=== PATIENT | male | born 1960 | race Caucasian/White ===

== ENCOUNTER 2019-04-08 09:32 | Emergency (ER) | payer SELFPAY ==
[~2019-04-08] VITALS: Ht 182.9 cm; Wt 118.1 kg
[2019-04-08] MEDS ORDERED: TRAM50TA2 PO (09:50)
[2019-04-08] MEDS ORDERED: AMOX500C2 PO (09:50)
--- NOTE | 2019-04-08 09:51 | ED EENT ---
History of Present Illness General Stated Complaint: TOOTHACHE Source: patient Exam Limitations: no limitations History of Present Illness Date Seen by Provider: Apr 08, 2019 Time Seen by Provider: 09:40 Initial Comments 58 yo male presents with dental pain, started about 4 days ago, pain is in left lower back teeth. pt last molar has been removed, so swelling, injury or drainage noted. pt has tried ibuprofen with minimal relief. Allergies and Home Medications Patient Home Medication List Home Medication List Reviewed: Yes Review of Systems Review of Systems Constitutional: No chills, No fever Nose: no symptoms reported Mouth: see HPI Throat: no symptoms reported Cardiovascular: no symptoms reported Gastrointestinal: no symptoms reported Musculoskeletal: no symptoms reported Skin: no symptoms reported Past Lywtkwq-Tqamko-Rglxra Hx Past Med/Social Hx: Reviewed Nursing Past Med/Soc Hx Physical Exam Height, Weight, BMI Height: '" Weight: lbs. oz. kg; BMI Method: General Appearance: WD/WN, no apparent distress Eyes: bilateral eye normal inspection Nose: normal inspection Mouth/Throat: No mandibular swelling; other (mild cavities, no absess, swelling noted. missing left lower back molar ) Cardiovascular: normal peripheral pulses, regular rate, rhythm Respiratory: chest non-tender, lungs clear Gastrointestinal: soft Neurologic/Psychiatric: alert, normal mood/affect, oriented x 3 Skin: normal color, warm/dry Departure Impression Primary Impression: Pain, dental Disposition: 01 HOME, SELF-CARE Condition: Stable Departure-Patient Inst. Patient Instructions: Dental Pain (DC) Add. Discharge Instructions: follow up with dentist as soon as able clove oil, over the counter lidocaine dental gel. Scripts Tramadol HCl (Tramadol HCl) 50 Mg Tablet 50 MG PO Q8H PRN for PAIN for 3 Days, #10 TAB 0 Refills Prov: DAVIDA PINTO DO 04/08/19 Amoxicillin (Amoxicillin) 500 Mg Capsule 500 MG PO TID, #21 CAP 0 Refills Prov: ARIADNA PINTOR German DO 04/08/19 DAVIDA PINTO DO Apr 08, 2019 09:51 POS
[2019-04-08 09:54] VITALS: BP 165/94
--- OUTSIDE RECORDS SUMMARY | 2019-05-03 20:58 | XMS REPORT | Continuity of Care Document ---
Author Organization Unknown Address Unknown Phone Unavailable Allergies Active Description Code Type Severity Reaction Onset Reported/Identified Relationship to Patient Clinical Status Yes No Known Drug Allergies [id number] Drug Allergy Unknown N/A 04/08/2019 Medications There is no data. Problems Date Dx Coded Attending Type Code Diagnosis Diagnosed By 04/13/2019 DAVIDA PINTO DO Ot K08.8 9 OTHER SPECIFIED DISORDERS OF TEETH AND S Procedures There is no data. Results There is no data. Encounters ACCT No. Visit Date/Time Discharge Status Pt. Type Provider Facility Loc./Unit Complaint [id number] 04/08/2019 09:34:00 019 09:56:00 DIS Outpatient DAVIDA PINTO DO [facility] FS TOOTHACHE
== END 2019-04-08 09:56 | disposition home or self-care (01) ==
LOC: ER FS 09:34
DX: K08.89 Other specified disorders of teeth and supporting structures (principal)
CPT/HCPCS: 99282